=== PATIENT | male | born 1940 | race American Indian/Alaskan Native ===

== ENCOUNTER 2020-08-15 01:03 | Emergency (ER) | payer MEDICARE ==
[2020-08-15] MEDS ORDERED: dexAMETHasone 20 MG/5 ML VIAL IV ONE (01:42)
[2020-08-15] MEDS ORDERED: diphenhydrAMINE 50 MG/ML VIAL IV ONE (01:42)
[2020-08-15] MEDS ORDERED: FAMOTIDINE 20 MG/2 ML INJ IV ONE (01:42)
--- NOTE | 2020-08-15 01:44 | Event Note ---
ED Screening Note ED Screening Note: Patient has history of colon cancer 2 weeks ago started a new cancer drug, he is not sure of the name Began having facial swelling but that improved He states around 5 PM tonight he began having tongue edema which did not improve Significant edema of the tongue This initial assessment/diagnostic orders/clinical plan/treatment(s) is/are subject to change based on patients health status, clinical progression and re- assessment by fellow clinical providers in the ED. Further treatment and workup at subsequent clinical providers discretion. Patient/guardian urged not to elope from the ED as their condition may be serious if not clinically assessed and managed. Initial orders include: Labs, meds Charge nurse Dragan advised patient needs room BENJAMIN
[2020-08-15 02:30] LABS: Hematocrit 38.6 % (35.5-45.6); Hemoglobin 12.4 gm/dl (11.8-15.2); Mean Corpuscular HGB Conc 32 % (32-34); Mean Corpuscular Volume 87 fl (84-94); Platelet Count 331 K/mm3 (140-440); Red Blood Count 4.43 M/mm3 (3.65-5.03); Red Cell Distribution Width 15.6 % (13.2-15.2)
--- NOTE | 2020-08-15 02:33 | Emergency Department Report ---
ED Allergic Reaction HPI - General Chief complaint: Allergic Reaction Stated complaint: SWELLING TO TONGUE Time Seen by Provider: 08/15/20 02:31 Source: patient Mode of arrival: Ambulatory Limitations: No Limitations - History of Present Illness Initial Comments: Patient is an 80-year-old male who presents emergency room with complaints of swollen tongue. Patient states he is having allergic reaction. Patient states he ate some shrimp and fish just prior to arrival. Patient states he called EMS because he was nervous. Patient states he denies difficulty swallowing or breathing. Patient states he is having difficulty speaking due to the swelling of his tongue. Patient states the swelling is the same. Patient states he also started a new chemo medication. Patient states his call of his cancer doctor. Told to come to the hospital to be evaluated. Patient denies recent travel. Patient denies recent international travel. Patient denies exposure to the novel coronavirus. Patient denies sick contacts. Patient denies fever and chills. Patient denies cough. Patient denies diarrhea. Patient denies coming in contact with anybody with symptoms of the novel coronavirus. MD Complaint: allergic reaction - Related Data Previous Rx's Medication Instructions Recorded Last Taken Type EPINEPHrine [Epipen 2-Carl] 0.3 mg IJ DAILY #1 auto.injct 08/15/20 Unknown Rx methylPREDNISolone [Medrol 4MG 4 mg PO DAILY 6 Days #1 tab.ds.pk 08/15/20 Unknown Rx DOSEPAK (21 tabs)] Allergies Allergy/AdvReac Type Severity Reaction Status Date / Time shrimp Allergy Swelling Verified 08/15/20 02:25 ED Review of Systems ROS: Stated complaint: SWELLING TO TONGUE Other details as noted in HPI Constitutional: denies: chills, fever Eyes: denies: eye pain, eye discharge, vision change ENT: as per HPI. denies: ear pain, throat pain Respiratory: denies: cough, shortness of breath, wheezing Cardiovascular: denies: chest pain, palpitations Endocrine: no symptoms reported Gastrointestinal: denies: abdominal pain, nausea, diarrhea Genitourinary: denies: urgency, dysuria Musculoskeletal: denies: back pain, joint swelling, arthralgia Skin: denies: rash, lesions Neurological: denies: headache, weakness, paresthesias Psychiatric: denies: anxiety, depression Hematological/Lymphatic: denies: easy bleeding, easy bruising ED Past Medical Hx - Past Medical History Previous Medical History?: Yes Hx of Cancer: Yes (colon) - Surgical History Past Surgical History?: Yes Additional Surgical History: colon - Family History Family history: no significant - Social History Smoking Status: Never Smoker Substance Use Type: None - Medications Home Medications: Home Medications Medication Instructions Recorded Confirmed Last Taken Type EPINEPHrine [Epipen 2-Carl] 0.3 mg IJ DAILY #1 auto.injct 08/15/20 Unknown Rx methylPREDNISolone [Medrol 4MG 4 mg PO DAILY 6 Days #1 tab.ds.pk 08/15/20 Unknown Rx DOSEPAK (21 tabs)] ED Physical Exam - General Limitations: No Limitations General appearance: alert, in no apparent distress - Head Head exam: Present: atraumatic, normocephalic - Eye Eye exam: Present: normal appearance - ENT ENT exam: Present: mucous membranes moist, other (Tongue swelling noted.) - Neck Neck exam: Present: normal inspection - Respiratory Respiratory exam: Present: normal lung sounds bilaterally. Absent: respiratory distress - Cardiovascular Cardiovascular Exam: Present: regular rate, normal rhythm. Absent: systolic murmur, diastolic murmur, rubs, gallop - GI/Abdominal GI/Abdominal exam: Present: soft, normal bowel sounds - Rectal Rectal exam: Present: deferred - Extremities Exam Extremities exam: Present: normal inspection - Back Exam Back exam: Present: normal inspection - Neurological Exam Neurological exam: Present: alert, oriented X3 - Psychiatric Psychiatric exam: Present: normal affect, normal mood - Skin Skin exam: Present: warm, dry, intact, normal color. Absent: rash ED Course Vital Signs 08/15/20 01:42 Temperature 98.3 F Pulse Rate 85 Respiratory 18 Rate Blood Pressure 122/67 O2 Sat by Pulse 96 Oximetry - Reevaluation(s) Reevaluation #1: Patient states he is feeling better. Patient states he is able to speak better. 08/15/20 04:06 Reevaluation #2: Patient states she is feeling better. Patient states she will go home. Patient's tongue has decreased in size. Patient is talking clear. I discussed all results and clinical findings with patient. I discussed plan of care with patient. Patient agrees with plan of care. Patient is stable for discharge. Patient will be discharged home. Patient given discharge instructions. Patient voiced understanding of discharge instructions. 08/15/20 05:00 ED Medical Decision Making - Lab Data Result diagrams: 08/15/20 01:55 08/15/20 01:55 - Medical Decision Making Patient is an 80-year-old male who presents emergency room with complaints of tongue swelling. Patient started a new chemo therapy medication today and pat ient also consumed fish and shrimp. Patient states he had shrimp and fish in the past. Patient's only complaint was tongue swelling and difficulty talking. Patient given Decadron, Pepcid and the patient responded well. Patient's ability to talk improved. Patient's tongue swelling improved. Patient allergy most likely secondary to shrimp. Patient instructed to avoid seafood, shrimp and fish. Patient stable for discharge. Patient had labs done which were essentially unremarkable. Patient will be discharged home with EpiPen and a Medrol Dosepak. - Differential Diagnosis Allergic reaction, tongue swelling, seafood allergy Critical care attestation.: If time is entered above; I have spent that time in minutes in the direct care of this critically ill patient, excluding procedure time. ED Disposition Clinical Impression: Food allergy, Tongue swelling Allergic reaction Qualifiers: Encounter type: initial encounter Qualified Code(s): T78.40XA - Allergy, unspecified, initial encounter Disposition: -01 TO HOME OR SELFCARE Is pt being admited?: No Does the pt Need Aspirin: No Condition: Stable Instructions: Allergies, Adult, Oset-zz-Atik, Food Allergy, Bdaz-my-Yvfc Additional Instructions: Patient to follow-up with primary care in 2 to 3 days. Patient to follow-up with middle stitcher in 2 to 3 days. Patient to rest. Patient to increase water. Patient to avoid fish and shrimp until cleared by middle stitcher. Patient to take Tylenol or ibuprofen as needed for pain. Patient to take meds as directed. Patient to return to the ER if condition worsens, changes or new symptoms arise. Prescriptions: EPINEPHrine [Epipen 2-Carl] 0.3 mg IJ DAILY #1 auto.injct methylPREDNISolone [Medrol 4MG DOSEPAK (21 tabs)] 4 mg PO DAILY 6 Days #1 tab.dsSherinpk Referrals: PRIMARY CARE, [Primary Care Provider] - 3-5 Days Time of Disposition: 05:03
[2020-08-15 02:39] LABS: Calcium 9.3 mg/dL (8.4-10.2)
[2020-08-15 03:55] LABS: Total Cells Counted 100
[2020-08-15 03:56] LABS: RBC Morphology Normal
[2020-08-15 06:05] VITALS: BP 143/74
== END 2020-08-15 06:15 | disposition home or self-care (01) ==
LOC: ED 01:03
DX: T78.1XXA Other adverse food reactions, not elsewhere classified, initial encounter (principal); R22.0 Localized swelling, mass and lump, head; Z98.890 Other specified postprocedural states; Z79.899 Other long term (current) drug therapy; Z91.013 Allergy to seafood; X58.XXXA Exposure to other specified factors, initial encounter
CPT/HCPCS: 36415; 80053; 85007; 85025; 96374; 96375; 99283; J1100; J1200

== ENCOUNTER 2021-04-29 11:18 | Emergency (ER) | payer MEDICARE ==
[2021-04-29 11:22] VITALS: BP 134/73
[2021-04-29] MEDS ORDERED: FAMOTIDINE 20 MG/2 ML INJ IV ONE (11:37)
[2021-04-29] MEDS ORDERED: diphenhydrAMINE 50 MG/ML VIAL IV ONE (11:37)
[2021-04-29] MEDS ORDERED: methylPREDNISolone Sod Succinate 40 MG/1 ML INJ IV ONE (11:37)
--- NOTE | 2021-04-29 14:29 | Emergency Department Report ---
ED General Adult HPI - General Chief complaint: Allergic Reaction Stated complaint: FACIAL SWELLING Time Seen by Provider: 04/29/21 11:33 Source: patient Mode of arrival: Ambulatory Limitations: No Limitations - History of Present Illness Initial comments: mouth and tongue swelling for last 2 days , takes LAXMI inhibitor Location: mouth Radiation: non-radiation - Related Data Previous Rx's Medication Instructions Recorded Last Taken Type EPINEPHrine [Epipen 2-Carl] 0.3 mg IJ DAILY #1 auto.injct 08/15/20 Unknown Rx methylPREDNISolone [Medrol 4MG 4 mg PO DAILY 6 Days #1 tab.ds.pk 08/15/20 Unknown Rx DOSEPAK (21 tabs)] Allergies Allergy/AdvReac Type Severity Reaction Status Date / Time shrimp Allergy Swelling Verified 08/15/20 02:25 ED Review of Systems ROS: Stated complaint: FACIAL SWELLING Other details as noted in HPI Constitutional: denies: chills, fever Eyes: denies: eye pain, eye discharge, vision change ENT: denies: ear pain, throat pain Respiratory: denies: cough, shortness of breath, wheezing Cardiovascular: denies: chest pain, palpitations Endocrine: no symptoms reported Gastrointestinal: denies: abdominal pain, nausea, diarrhea Genitourinary: denies: urgency, dysuria Musculoskeletal: denies: back pain, joint swelling, arthralgia Skin: denies: rash, lesions Neurological: denies: headache, weakness, paresthesias Psychiatric: denies: anxiety, depression Hematological/Lymphatic: denies: easy bleeding, easy bruising ED Past Medical Hx - Past Medical History Previous Medical History?: Yes Hx Hypertension: Yes - Surgical History Additional Surgical History: colon - Social History Smoking Status: Never Smoker Substance Use Type: None - Medications Home Medications: Home Medications Medication Instructions Recorded Confirmed Last Taken Type EPINEPHrine [Epipen 2-Carl] 0.3 mg IJ DAILY #1 auto.injct 08/15/20 Unknown Rx methylPREDNISolone [Medrol 4MG 4 mg PO DAILY 6 Days #1 tab.ds.pk 08/15/20 Unknown Rx DOSEPAK (21 tabs)] ED Physical Exam - General Limitations: No Limitations General appearance: alert, in no apparent distress - Head Head exam: Present: atraumatic, normocephalic - Eye Eye exam: Present: normal appearance - ENT ENT exam: Present: mucous membranes moist, other (angioedema) - Neck Neck exam: Present: normal inspection - Respiratory Respiratory exam: Present: normal lung sounds bilaterally. Absent: respiratory distress - Cardiovascular Cardiovascular Exam: Present: regular rate, normal rhythm. Absent: systolic murmur, diastolic murmur, rubs, gallop - GI/Abdominal GI/Abdominal exam: Present: soft, normal bowel sounds - Rectal Rectal exam: Present: deferred - Extremities Exam Extremities exam: Present: normal inspection - Back Exam Back exam: Present: normal inspection - Neurological Exam Neurological exam: Present: alert, oriented X3 - Psychiatric Psychiatric exam: Present: normal affect, normal mood - Skin Skin exam: Present: warm, dry, intact, normal color. Absent: rash ED Course Vital Signs 04/29/21 11:21 Temperature 98 F Pulse Rate 70 Respiratory 16 Rate Blood Pressure 134/73 [Right] O2 Sat by Pulse 99 Oximetry - Reevaluation(s) Reevaluation #1: 04/29/21 14:25 steriods and pepcid given and benadryl, imrpoved swelling no distress vss , will d.c BP meds with LAXMI Critical care attestation.: If time is entered above; I have spent that time in minutes in the direct care of this critically ill patient, excluding procedure time. 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
== END 2021-04-29 15:03 | disposition home or self-care (01) ==
LOC: ED 11:18
DX: T78.3XXA Angioneurotic edema, initial encounter (principal); Z98.890 Other specified postprocedural states; I10 Essential (primary) hypertension; Z79.899 Other long term (current) drug therapy; Z91.013 Allergy to seafood
CPT/HCPCS: 96374; 96375; 99282; J1200; J2920; J3490

== ENCOUNTER 2021-06-12 17:24 | Emergency (ER) | payer MEDICARE ==
[2021-06-12 18:31] VITALS: BP 158/83
--- NOTE | 2021-06-12 19:34 | Event Note ---
ED Screening Note Date of service: 06/12/21 Time: 19:33 ED Screening Note: 81-year-old -[place] male with a history of colon cancer currently undergoing chemo presents complaining of low abdominal pain Onset yesterday He denies any nausea, vomiting or diarrhea or any bloody stools. He has had multiple abdominal surgeries including bowel resections. This initial assessment/diagnostic orders/clinical plan/treatment(s) is/are subject to change based on patients health status, clinical progression and re- assessment by fellow clinical providers in the ED. Further treatment and workup at subsequent clinical providers discretion. Patient/guardian urged not to elope from the ED as their condition may be serious if not clinically assessed and managed. Initial orders include: Labs/CT
[2021-06-12] MEDS ORDERED: ONDANSETRON 4 MG/2 ML INJ IV ONE (19:58)
[2021-06-12] MEDS ORDERED: fentaNYL 100 MCG/2 ML INJ IV ONE (19:58)
[2021-06-12 19:59] LABS: Basophils # (Auto) 0.1 K/mm3 (0.0-0.1); Basophils % (Auto) 0.4 % (0.0-1.8); Eosinophils # (Auto) 0.1 K/mm3 (0.0-0.4); Eosinophils % (Auto) 0.6 % (0.0-4.3); Hematocrit 39.7 % (35.5-45.6); Hemoglobin 12.5 gm/dl (11.8-15.2); Lymphocytes # (Auto) 1.5 K/mm3 (1.2-5.4); Lymphocytes % (Auto) 12.7 % (13.4-35.0); Mean Corpuscular HGB Conc 31 % (32-34); Mean Corpuscular Volume 90 fl (84-94); Monocytes # (Auto) 0.8 K/mm3 (0.0-0.8); Monocytes % (Auto) 6.3 % (0.0-7.3); Platelet Count 290 K/mm3 (140-440); Red Blood Count 4.43 M/mm3 (3.65-5.03); Red Cell Distribution Width 15.3 % (13.2-15.2)
[2021-06-12 20:08] LABS: Alanine Aminotransferase 10 units/L (7-56); Albumin 3.9 g/dL (3.9-5); BUN/Creatinine Ratio 14; Blood Urea Nitrogen 11 mg/dL (9-20); Calcium 9.6 mg/dL (8.4-10.2); Hemolysis Index 9
--- NOTE | 2021-06-12 20:21 | Emergency Department Report ---
HPI - General Chief Complaint: Abdominal Pain Time Seen by Provider: 06/12/21 19:48 - HPI HPI: MSE 1 The patient is an 81-year-old male present with chief complaint of abdominal pain. Patient states he developed lower abdominal pain yesterday. When asked to give the quality pain the patient states it just hurts. Patient states the pain is been intermittent. Patient denies nausea vomiting or diarrhea. Patient denies history of fever or hematuria. Patient admits to occasional dysuria for the past 3 to 4 months. Patient admits to urinary frequency x1 month. Patient has a history of colon CA status post surgery and last received chemotherapy 1 month ago. Patient currently gives his abdominal pain a a a score of 8/10. The patient states he was brought to the ED by family member and does not driving ED Past Medical Hx - Past Medical History Hx Hypertension: Yes Hx Renal Disease: Yes (KIDNEY PROBLEMS) Hx of Cancer: Yes (COLON) - Surgical History Additional Surgical History: Colon resection, colostomy with reversal, abdominal cyst removal - Family History Family history: no significant - Social History Smoking Status: Never Smoker Substance Use Type: None - Medications Home Medications: Home Medications Medication Instructions Recorded Confirmed Last Taken Type EPINEPHrine [Epipen 2-Carl] 0.3 mg IJ DAILY #1 auto.injct 08/15/20 06/12/21 Unknown Rx methylPREDNISolone [Medrol 4MG 4 mg PO DAILY 6 Days #1 tab.ds.pk 08/15/20 06/12/21 Unknown Rx DOSEPAK (21 tabs)] amLODIPine 5 mg PO DAILY #30 tab 04/29/21 06/12/21 Unknown Rx hydroCHLOROthiazide [HCTZ] 25 mg PO QDAY #30 tablet 04/29/21 06/12/21 Unknown Rx HYDROcodone/APAP 5-325 [[place] 1 - 2 each PO Q6HR PRN #10 tablet 06/12/21 Unknown Rx 5/325] Sulfamethoxazole/Trimethoprim 1 each PO BID #14 06/12/21 Unknown Rx [Bactrim DS TAB] ED Review of Systems ROS: Stated complaint: AB PAIN Other details as noted in HPI Constitutional: denies: fever Eyes: denies: eye pain ENT: denies: throat pain Respiratory: no symptoms reported Cardiovascular: denies: chest pain Endocrine: no symptoms reported Gastrointestinal: abdominal pain. denies: nausea, vomiting, diarrhea Genitourinary: dysuria. denies: hematuria Musculoskeletal: denies: back pain Neurological: denies: headache Physical Exam - Physical Exam Vital Signs: Vital Signs 06/12/21 06/12/21 06/12/21 18:25 18:37 18:38 Temperature 98.2 F 98.2 F Pulse Rate 67 67 Respiratory 18 18 Rate Blood Pressure 158/83 Blood Pressure 158/83 [Right] O2 Sat by Pulse 98 98 98 Oximetry Physical Exam: GENERAL: The patient is well-developed well-nourished male sitting in chair not appearing to be in acute distress HEENT: Normocephalic. Atraumatic. Extraocular motions are intact. Patient has moist mucous membranes. NECK: Supple. Trachea midline CHEST/LUNGS: Clear to auscultation. There is no respiratory distress noted. HEART/CARDIOVASCULAR: Regular. There is no tachycardia. There is no gallop rub or murmur. ABDOMEN: Abdomen is soft, with diffuse tenderness to palpation. There is no rebound or guarding. Patient has normal bowel sounds. There is no abdominal distention. SKIN: There is no rash. There is no edema. There is no diaphoresis. NEURO: The patient is awake, alert, and oriented. The patient is cooperative. The patient has no focal neurologic deficits. The patient has normal speech. GCS 15 MUSCULOSKELETAL: There is no evidence of acute injury. ED Course Vital Signs 06/12/21 06/12/21 06/12/21 18:25 18:37 18:38 Temperature 98.2 F 98.2 F Pulse Rate 67 67 Respiratory 18 18 Rate Blood Pressure 158/83 Blood Pressure 158/83 [Right] O2 Sat by Pulse 98 98 98 Oximetry ED Medical Decision Making - Lab Data Result diagrams: 06/12/21 19:35 06/12/21 19:35 Laboratory Tests 06/12/21 06/12/21 06/12/21 19:35 19:35 Unknown WBC 12.0 H RBC 4.43 Hgb 12.5 Hct 39.7 MCV 90 MCH 28 MCHC 31 L RDW 15.3 H Plt Count 290 Lymph % (Auto) 12.7 L [place] % (Auto) 6.3 Eos % (Auto) 0.6 Baso % (Auto) 0.4 Lymph # (Auto) 1.5 [place] # (Auto) 0.8 Eos # (Auto) 0.1 Baso # (Auto) 0.1 Seg Neutrophils % 80.0 H Seg Neutrophils # 9.6 H Sodium 137 Potassium 4.0 Chloride 102.7 Carbon Dioxide 22 Anion Gap 16 BUN 11 Creatinine 0.8 Estimated GFR > 60 BUN/Creatinine Ratio 14 Glucose 104 H Calcium 9.6 Total Bilirubin 0.50 AST 17 ALT 10 Alkaline Phosphatase 117 Total Protein 7.3 Albumin 3.9 Albumin/Globulin Ratio 1.1 Lipase 18 Urine Color Yellow Urine Turbidity Clear Urine pH 6.0 Ur Specific [place] 1.053 H Urine Protein <15 mg/dl Urine Glucose (UA) Neg Urine Ketones Neg Urine Blood Mod Urine Nitrite Neg Urine Bilirubin Neg Urine Urobilinogen < 2.0 Ur Leukocyte Esterase Neg Urine WBC (Auto) 1.0 Urine RBC (Auto) 7.0 U Epithel Cells (Auto) < 1.0 Urine Mucus Few - Radiology Data Radiology results: report reviewed (CT abdomen pelvis), image reviewed (CT abdomen pelvis) [place] [address] Cat Scan Report Signed Patient: DEMETRIA MABRY MR#: [id number] : 1940 Acct:[id number] Age/Sex: 81 / M ADM Date: 06/12/21 Loc: ED Attending Dr: Ordering Physician: ALONDRA COLLINS Date of Service: 06/12/21 Procedure(s): CT abdomen pelvis w con Accession Number(s): [id number] cc: ALONDRA COLLINS CT ABDOMEN AND PELVIS WITH CONTRAST INDICATION / CLINICAL INFORMATION: Diffuse abdominal pain, nausea vomiting. TECHNIQUE: Axial CT images were obtained through the abdomen and pelvis after 100 cc of Omnipaque [address] scans at this location are performed using CT dose reduction for ALARA by means of automated exposure control. COMPARISON: None available. FINDINGS: LOWER CHEST: No significant abnormality. AORTA / ARTERIES: No significant abnormality. IVC / VEINS: No significant abnormality. LYMPH NODES: There is an enlarged pericaval lymph node measuring 1.3 cm (series 2 image 67). COLON: Status post partial colectomy. APPENDIX: Appendectomy. STOMACH / SMALL BOWEL: No significant abnormality. PERITONEUM: No free fluid. No free air. No fluid collection. LIVER: No significant abnormality. GALLBLADDER: Uncomplicated cholelithiasis. BILE DUCTS: No significant abnormality. PANCREAS: No significant abnormality. SPLEEN: Status post splenectomy. ADRENALS: No significant abnormality. RIGHT KIDNEY / URETER: Multiple renal cysts. No hydronephrosis. Multiple surgical clips region of the right kidney, possibly lymph node dissection. LEFT KIDNEY / URETER: Multiple renal cysts. However, within the upper pole there is an exophytic 1.9 cm soft tissue mass which is incompletely evaluated there is an additional soft tissue mass within the interpolar region measuring up to 1.3 cm. And lastly in the inferior pole there is a 1.4 cm soft tissue mass. URINARY BLADDER: No significant abnormality. REPRODUCTIVE ORGANS: No significant abnormality. SKELETAL SYSTEM: There is scattered degeneration. ADDITIONAL FINDINGS: None. IMPRESSION: 1. Post surgical change to the colon without evidence of small bowel obstruction. 2. Multiple soft tissue masses involving the left kidney which are incompletely evaluated on single contrast imaging. Recommend short phase CT or MRI for further evaluation. 3. Nonspecific retroperitoneal adenopathy in the pericaval region. 4. Additional findings as above. Signer Name: Freddy Elias DO Signed: 06/12/2021 10:18 PM Workstation Name: [id number] Transcribed By: NIKOLAS Dictated By: FREDDY ELIAS DO Electronically Authenticated By: FREDDY ELIAS DO Signed Date/Time: 06/12/212217 DD/ 16 TD/TT: - Medical Decision Making Given patient's history of dysuria will initiate antibiotic treatment - Differential Diagnosis : CAD, diverticulitis, partial small bowel obstruction, UTI Critical care attestation.: If time is entered above; I have spent that time in minutes in the direct care of this critically ill patient, excluding procedure time. ED Disposition Clinical Impression: Acute abdominal pain, Dysuria Disposition: HOME / SELF CARE / HOMELESS Is pt being admited?: No Does the pt Need Aspirin: No Condition: Stable Instructions: Abdominal Pain, Adult Additional Instructions: Return to the emergency department should you develop worsening symptoms, inability to tolerate food or liquids, high fever or any other concerns Prescriptions: Sulfamethoxazole/Trimethoprim [Bactrim DS TAB] 1 each PO BID #14 HYDROcodone/APAP 5-325 [[place] 5/325] 1 - 2 each PO Q6HR PRN #10 tablet PRN Reason: Pain Referrals: VALERIE OTERO MD [Primary Care Provider] - 3-5 Days Time of Disposition: 22:59
--- NOTE | 2021-06-12 22:22 | Cat Scan Report ---
CT ABDOMEN AND PELVIS WITH CONTRAST INDICATION / CLINICAL INFORMATION: Diffuse abdominal pain, nausea vomiting. TECHNIQUE: Axial CT images were obtained through the abdomen and pelvis after 100 cc of Omnipaque [address] scans at this location are performed using CT dose reduction for ALARA by means of automated exposure control. COMPARISON: None available. FINDINGS: LOWER CHEST: No significant abnormality. AORTA / ARTERIES: No significant abnormality. IVC / VEINS: No significant abnormality. LYMPH NODES: There is an enlarged pericaval lymph node measuring 1.3 cm (series 2 image 67). COLON: Status post partial colectomy. APPENDIX: Appendectomy. STOMACH / SMALL BOWEL: No significant abnormality. PERITONEUM: No free fluid. No free air. No fluid collection. LIVER: No significant abnormality. GALLBLADDER: Uncomplicated cholelithiasis. BILE DUCTS: No significant abnormality. PANCREAS: No significant abnormality. SPLEEN: Status post splenectomy. ADRENALS: No significant abnormality. RIGHT KIDNEY / URETER: Multiple renal cysts. No hydronephrosis. Multiple surgical clips region of the right kidney, possibly lymph node dissection. LEFT KIDNEY / URETER: Multiple renal cysts. However, within the upper pole there is an exophytic 1.9 cm soft tissue mass which is incompletely evaluated there is an additional soft tissue mass within th e interpolar region measuring up to 1.3 cm. And lastly in the inferior pole there is a 1.4 cm soft ti ssue mass. URINARY BLADDER: No significant abnormality. REPRODUCTIVE ORGANS: No significant abnormality. SKELETAL SYSTEM: There is scattered degeneration. ADDITIONAL FINDINGS: None. IMPRESSION: 1. Post surgical change to the colon without evidence of small bowel obstruction. 2. Multiple soft tissue masses involving the left kidney which are incompletely evaluated on single c ontrast imaging. Recommend short phase CT or MRI for further evaluation. 3. Nonspecific retroperitoneal adenopathy in the pericaval region. 4. Additional findings as above. Signer Name: Freddy Nelson DO Signed: 06/12/2021 10:18 PM Workstation Name: [id number]
[2021-06-12 22:36] LABS: Bilirubin,Urine NEG (Negative); Blood,Urine MOD (Negative); Color,Urine Yellow (Yellow); Mucus,Urine FEW /HPF; Protein,Urine <15 mg/dL mg/dL (Negative); Urobilinogen,Urine < 2.0 mg/dL (<2.0)
== END 2021-06-12 23:20 | disposition home or self-care (01) ==
LOC: ED 17:24
DX: R10.9 Unspecified abdominal pain (principal); R30.0 Dysuria; I10 Essential (primary) hypertension
CPT/HCPCS: 36415; 74177; 80053; 81001; 83690; 85025; 96374; 96375; 99284; J2405; J3010; Q9967